=== PATIENT | male | born 1980 | race Caucasian/White ===

== ENCOUNTER 2016-11-05 03:48 | Emergency (ER) | payer OTHER ==
[~2016-11-05] VITALS: Ht 177.8 cm; Wt 75.0 kg
[~2016-11-05 03:48] MED LIST: AMBIEN10 M1 GT; AMOXICILLIN500 MG PO; BENTYL20 MG PO; CLEOCIN300 MG PO; CLINDAMYCIN HC300 MG PO; FLEXERIL10 MG PO; GABAPENTIN300 MG PO; HYDROCODON-ACE1 EAC8 PO; IBUPROFEN600 MG PO; METHADONE10 MG PO; METHADONE5 MG PO; METHADOSE10 MG PO; NAPROSYN500 MG PO; NAPROXEN500 MG PO; NOHOMEMEDS; NORTRIPTYLINE H25 MG PO; OXYCODONE HCL5 MG PO; PEN-VEE K,VEET500 MG PO; PERCOCET 5/31 TABLET PO; PERCOCET 7.51 TABLET PO; PREDNISONE10 MG PO; PREDNISONE20 MG PO; PROMETHAZINE HC25 M1 PO; PROVENTIL HFA6.7 GM IH; SEROQUEL300 MG PO; SOMA350 MG PO; TRAMADOL HCL50 MG PO; VICODIN 5-3001 EACH PO; ZITHROMAX Z-PA250 MG PO; ZOLOFT50 M1 GT
[2016-11-05] MEDS ORDERED: NAPROSYN500 MG PO (04:50)
[2016-11-05 05:06] VITALS: BP 118/77
== END 2016-11-05 05:08 | disposition home or self-care (01) ==
LOC: EME 03:48
DX: S20.212A Contusion of left front wall of thorax, initial encounter (principal); W01.198A Fall on same level from slipping, tripping and stumbling with subsequent striking against other object, initial encounter; F17.200 Nicotine dependence, unspecified, uncomplicated
CPT/HCPCS: 71101; 99281; 99284; J1885

== ENCOUNTER 2017-03-11 14:57 | Emergency (ER) | payer OTHER ==
[~2017-03-11] VITALS: Ht 177.8 cm; Wt 70.7 kg
[2017-03-11] MEDS ORDERED: PEPCID20 MG PO (15:16)
[2017-03-11] MEDS ORDERED: BENADRYL50 MG PO (15:16)
[2017-03-11 15:49] VITALS: BP 116/72
== END 2017-03-11 15:50 | disposition home or self-care (01) ==
LOC: EME 14:57
DX: T63.441A Toxic effect of venom of bees, accidental (unintentional), initial encounter (principal); Z91.030 Bee allergy status
CPT/HCPCS: 99281; 99284; J1100

== ENCOUNTER 2017-05-07 10:25 | Emergency (ER) | payer OTHER ==
[~2017-05-07] VITALS: Ht 177.8 cm; Wt 73.5 kg
[~2017-05-07 10:25] MED LIST changes: +BENADRYL50 MG PO; +PEPCID20 MG PO
[2017-05-07 10:57] VITALS: BP 119/65
== END 2017-05-07 11:34 | disposition home or self-care (01) ==
LOC: EME 10:25
DX: L98.9 Disorder of the skin and subcutaneous tissue, unspecified (principal); F17.200 Nicotine dependence, unspecified, uncomplicated; Z86.73 Personal history of transient ischemic attack (TIA), and cerebral infarction without residual deficits; Z88.6 Allergy status to analgesic agent
CPT/HCPCS: 99281; 99283

== ENCOUNTER 2017-09-26 22:04 | Emergency (ER) | payer OTHER ==
[~2017-09-26] VITALS: Ht 175.3 cm; Wt 73.3 kg
[2017-09-26] MEDS ORDERED: ROBAXIN750 MG PO (23:30)
[2017-09-26] MEDS ORDERED: MEDROL DOSEPAK4 MG PO (23:30)
[2017-09-26] MEDS ORDERED: ULTRAM50 MG PO (23:30)
[2017-09-26] MEDS ORDERED: NORCO 5/3251 TABLET PO (23:49)
[2017-09-26] MEDS ORDERED: GABAPENTIN400 MG PO (23:51)
[2017-09-26 23:52] VITALS: BP 135/73
== END 2017-09-26 23:52 | disposition home or self-care (01) ==
LOC: EME 22:04
DX: M54.6 Pain in thoracic spine (principal); M41.9 Scoliosis, unspecified; M51.26 Other intervertebral disc displacement, lumbar region; Z88.5 Allergy status to narcotic agent; Z88.6 Allergy status to analgesic agent; F17.200 Nicotine dependence, unspecified, uncomplicated; Z86.73 Personal history of transient ischemic attack (TIA), and cerebral infarction without residual deficits
CPT/HCPCS: 72070; 99281; 99284; J7512

== ENCOUNTER 2017-11-30 12:33 | Emergency (ER) | payer OTHER ==
[~2017-11-30] VITALS: Ht 175.3 cm; Wt 72.9 kg
[~2017-11-30 12:33] MED LIST changes: +GABAPENTIN400 MG PO; +MEDROL DOSEPAK4 MG PO; +NORCO 5/3251 TABLET PO; +ROBAXIN750 MG PO; +ULTRAM50 MG PO
[2017-11-30] MEDS ORDERED: NAPROXEN500 MG PO (13:48)
[2017-11-30] MEDS ORDERED: BACTRIM,SEPT1 TABLET PO (13:48)
[2017-11-30 13:56] VITALS: BP 121/65
== END 2017-11-30 13:57 | disposition home or self-care (01) ==
LOC: EME 12:33
DX: L05.91 Pilonidal cyst without abscess (principal)
CPT/HCPCS: 99281; 99283